=== PATIENT | male | born 1990 | race African-American/Black ===

== ENCOUNTER 2017-02-11 05:43 | Emergency (ER) | payer BC, OTHER ==
[~2017-02-11] VITALS: Ht 188 cm; Wt 74.8 kg
[2017-02-11 05:57] VITALS: BP 158/98
== END 2017-02-11 06:44 | disposition left against medical advice (07) ==
LOC: EDBD 05:43 → M ED 06:27
DX: Z53.29 Procedure and treatment not carried out because of patient's decision for other reasons (principal)

== ENCOUNTER 2017-02-15 12:06 | Emergency (ER) | payer BC, OTHER ==
[~2017-02-15] VITALS: Ht 188 cm; Wt 76.2 kg
[2017-02-15 14:00] LABS: MEAN CORPUSCULAR HEMOGLOBIN 30.6 pg (27.0-33.0); MEAN CORPUSCULAR HGB CONC 32.1 g/dl (32.0-36.5); MEAN CORPUSCULAR VOLUME 95.4 fl (80.0-96.0); WHITE BLOOD COUNT 4.3 K/mm3 (4.0-10.0)
[2017-02-15 14:12] LABS: ANION GAP 3 MEQ/L (8-16); BLOOD UREA NITROGEN 8 MG/DL (7-18); CALCIUM LEVEL 8.6 MG/DL (8.5-10.1); CARBON DIOXIDE LEVEL 33 MEQ/L (21-32); CHLORIDE LEVEL 107 MEQ/L (98-107); CREATININE FOR GFR 1.21 MG/DL (0.70-1.30); GLOMERULAR FILTRATION RATE > 60.0 (>60); GLUCOSE, FASTING 66 MG/DL (70-105); POTASSIUM SERUM 4.1 MEQ/L (3.5-5.1); SODIUM LEVEL 143 MEQ/L (136-145)
[2017-02-15 14:16] LABS: METHADONE URINE NEGATIVE (NEGATIVE)
--- NOTE | 2017-02-15 14:27 | REP ---
CT HEAD WITHOUT CONTRAST: HISTORY: Altered mental status. There is no intraparenchymal hemorrhage, mass, or midline shift. The ventricular system is normal in appearance. There is no extracerebral collection. The visualized sinuses are clear. IMPRESSION: There is no intracranial lesion. Signed by Benji Prescott MD 02/15/2017 02:32 P
[2017-02-15 15:12] LABS: FOLLICLE STIMULATING HORMONE 3.3 mIU/mL (1.4-18.1); LUTEINIZING HORMONE 4.1 mIU/mL (1.5-9.3)
[2017-02-15 15:31] VITALS: BP 119/58
== END 2017-02-15 15:47 | disposition home or self-care (01) ==
LOC: M ED 13:56
DX: R41.82 Altered mental status, unspecified (principal); G40.909 Epilepsy, unspecified, not intractable, without status epilepticus; F17.200 Nicotine dependence, unspecified, uncomplicated; Z79.899 Other long term (current) drug therapy
CPT/HCPCS: 36415; 70450; 80048; 80306; 81001; 83001; 83002; 83036; 85027; 99282; G0480

== ENCOUNTER 2018-01-13 10:36 | Emergency (ER) | payer SELFPAY, BC, OTHER | END 2018-01-13 11:55 | disposition left against medical advice (07) | LOC: M ED 10:36 | DX: R55 Syncope and collapse (principal); R11.10 Vomiting, unspecified; E78.9 Disorder of lipoprotein metabolism, unspecified; R56.9 Unspecified convulsions; I51.9 Heart disease, unspecified; F17.200 Nicotine dependence, unspecified, uncomplicated | CPT/HCPCS: 99283 ==